=== PATIENT | female | born 1980 | race Hispanic/Latino ===

== ENCOUNTER 2017-01-05 16:41 | Emergency (ER) | payer BC ==
--- NOTE | 2017-01-05 17:44 | Emergency Department Report ---
ED Seizure HPI - General Chief Complaint: Seizure Stated Complaint: SEIZURE Time Seen by Provider: 01/05/17 17:14 Source: patient, family, EMS, RN notes reviewed, old records reviewed Mode of arrival: Stretcher Limitations: No Limitations - History of Present Illness Initial Comments: This is a 36-year-old female, previously unknown to me. Her primary care doctor is Dr. Acacia Orozco. She has a history of seizure disorder, and takes gabapentin, 600 mg 5 times daily. She moved here from [place] in late 2015. She reports that she is unable to tolerate Keppra, valproic acid, Tegretol. She is brought to the hospital by EMS for seizure. Patient was at work, and apparently had a generalized tonic clonic seizure. She fell and hit her right head. Prior to the event, there was no severe headache, neck pain, chest pain, abdominal pain or shortness of breath. Last seizure was 3 weeks ago. Prior seizure to that was 3 weeks before that. No cough, no mucus production, no abdominal pain, but no irritative or obstructive urinary symptoms. sHe denies toxic drug use. MD Complaint: seizure -: Sudden Description of Episode: loss of consciousness -: second(s) Witnessed:: Yes Trauma: Yes Seizure History: known seizure disorder, compliant with medication Place: work Possible Precipitating Event: none Associated Symptoms: denies: chest pain, cough, diaphoresis, fever/chills, loss of appetite, malaise, rash, shortness of breath, syncope, weakness, tongue injury, shoulder dislocation - Related Data Home Medications Medication Instructions Recorded Confirmed Last Taken Gabapentin [Neurontin] 1,200 mg PO TID 01/05/17 01/05/17 01/05/17 Previous Rx's Medication Instructions Recorded Last Taken Type levETIRAcetam [Keppra TAB] 1,000 mg PO BID #60 tab 01/05/17 Unknown Rx Allergies Allergy/AdvReac Type Severity Reaction Status Date / Time clindamycin Allergy Anaphylaxis Verified 09/25/16 17:03 fentanyl Allergy Shortness Verified 09/25/16 17:03 of Breath methocarbamol [From Robaxin] Allergy Itching Verified 09/25/16 17:03 morphine Allergy Anaphylaxis Verified 09/25/16 17:03 oxycodone HCl [From Percocet] Allergy Itching Verified 09/25/16 17:03 Penicillins Allergy Swelling Verified 09/25/16 17:03 Tetanus Vaccines & Toxoid Allergy Swelling Verified 09/23/16 13:06 ED Review of Systems ROS: Stated complaint: SEIZURE Other details as noted in HPI Constitutional: denies: fever Eyes: denies: eye discharge ENT: denies: epistaxis Respiratory: denies: cough Cardiovascular: denies: chest pain Gastrointestinal: denies: abdominal pain Genitourinary: denies: dysuria Musculoskeletal: denies: back pain Skin: as per HPI Neurological: as per HPI, headache Psychiatric: anxiety ED Past Medical Hx - Past Medical History Hx Seizures: Yes - Surgical History Additional Surgical History: tubal ligation, kidney stone, tonsillectomy - Social History Smoking Status: Current Every Day Smoker Substance Use Type: None - Medications Home Medications: Home Medications Medication Instructions Recorded Confirmed Last Taken Type Gabapentin [Neurontin] 1,200 mg PO TID 01/05/17 01/05/17 01/05/17 History levETIRAcetam [Keppra TAB] 1,000 mg PO BID #60 tab 01/05/17 Unknown Rx ED Physical Exam - General Limitations: No Limitations General appearance: alert, in no apparent distress - Head Head exam: Present: atraumatic, normocephalic - Eye Eye exam: Present: normal appearance, PERRL, EOMI. Absent: nystagmus - ENT ENT exam: Present: normal exam, normal orophraynx, mucous membranes moist, TM's normal bilaterally, normal external ear exam - Neck Neck exam: Present: normal inspection, full ROM. Absent: tenderness, meningismus - Respiratory Respiratory exam: Present: normal lung sounds bilaterally. Absent: respiratory distress, wheezes, rales, rhonchi, stridor, chest wall tenderness - Cardiovascular Cardiovascular Exam: Present: regular rate, normal rhythm, normal heart sounds. Absent: bradycardia, tachycardia, irregular rhythm, systolic murmur, diastolic murmur, rubs, gallop - GI/Abdominal GI/Abdominal exam: Present: soft, normal bowel sounds. Absent: distended, tenderness, guarding, rebound, rigid, pulsatile mass - Extremities Exam Extremities exam: Present: normal inspection, full ROM, normal capillary refill. Absent: tenderness, pedal edema, joint swelling, calf tenderness - Back Exam Back exam: Present: normal inspection, full ROM. Absent: tenderness, CVA tenderness (R), CVA tenderness (L), muscle spasm, paraspinal tenderness, vertebral tenderness - Neurological Exam Neurological exam: Present: alert, oriented X3, normal gait, other (Extraocular movements intact. Tongue midline. No facial droop. Facial sensation intact to light touch in the V1, V2, V3 distribution bilaterally. 5 and 5 strength in 4 extremities.. Sensation is intact to light touch in 4 extremities.). Absent : motor sensory deficit - Psychiatric Psychiatric exam: Present: normal affect, normal mood - Skin Skin exam: Present: warm, dry, intact, normal color. Absent: rash ED Course Vital Signs 01/05/17 01/05/17 01/05/17 17:09 19:19 19:37 Temperature 98.3 F Pulse Rate 76 70 Respiratory 18 16 14 Rate Blood Pressure 146/89 Blood Pressure 134/81 [Left] O2 Sat by Pulse 100 99 Oximetry - Reevaluation(s) Reevaluation #1: 01/05/17 18:22 Differential diagnosis: Breakthrough seizure, medication noncompliance, intracranial injury, concussion, urinary tract infection, drug abuse Assessment and plan: 36-year-old female with a known history of seizure disorder , has multiple intolerances to multiple anticonvulsant medications, is currently on gabapentin, and does not have an outpatient neurologist. Had a breakthrough seizure today. Last breakthrough seizure was 3 weeks ago, and prior breakthrough seizure to that was 3 weeks before that. She has an element of head trauma today. May have a mild concussion. Has a GCS of 15, with an NIH score of 0. No indication for C-spine imaging at this time. Patient is clinically sober at this time. The cervical spine is cleared through nexus and greenland[place] c spine rule We will obtain noncontrast CAT scan of the head. Basic laboratory studies are pending. 01/05/17 18:59 Reevaluation #2: 01/05/17 21:06 noncontrast CAT scan of the brain demonstrates multiple chronic- appearing white matter lesions. I have discussed this with the patient. She reports these lesions have been there since she was 23. She reports having extensive workup in [place], including lumbar puncture, and MRI. She reports that she does not take Dilantin or valproic acid because she seizes through them. She reports that she does not take Tegretol because she seizes through that. She can tolerate Keppra, but gets nonspecific dizziness. I have contacted the neurologist human resources consultant for [facility]; Dr. Thomas. I have discussed her case with the neurologist, and the neurologist has reviewed her imaging. She recommends either Vimpat, 200 mg as a loading dose followed by 100 mg twice daily, or Keppra, 1000 mg twice daily, in addition to the patient continuing her gabapentin, which she states is an adjunct of therapy. She does recommended the patient follow-up as an outpatient for an MRI with and without contrast. Patient can follow-up at [facility] in the neurology clinic by calling the phone number [phone], which is the phone number for [facility] casting machine set up operator. Patient can also follow up at the [facility] at [phone]. The patient is willing to try keppra again. She has been observed in the ER for a prolonged period of time without clinical decompensation. She clinically appears well, has a GCS of 15, with an NIH score of 0. she is instructed as to the need for close follow up with outpatient neurology. patient and significant other verbalize understanding Reevaluation #3: 01/05/17 21:25 Correction, patient reports she takes gabapentin, 1200 mg 3 times daily. She also reports that she is able to take Motrin/ibuprofen for pain. ED Medical Decision Making - Lab Data Result diagrams: 01/05/17 18:05 01/05/17 18:05 - Radiology Data Radiology results: report reviewed, image reviewed Noncontrast CAT scan of the brain demonstrates no acute injury. There are multiple scattered patchy moderate sized partially focal areas of low intensity throughout the cerebral hemisphere white matter. These are nonspecific. May indicate a demyelinating disease such as multiple sclerosis. White matter disease of other etiology is not excluded. Chronic small vessel ischemic change or multiple deep white matter infarcts are possible but less likely considering the patient's age. Critical care attestation.: If time is entered above; I have spent that time in minutes in the direct care of this critically ill patient, excluding procedure time. ED Disposition Clinical Impression: Convulsion Qualifiers: Convulsion type: unspecified Qualified Code(s): R56.9 - Unspecified convulsions Disposition: DISCHARGED TO HOME OR SELFCARE Is pt being admited?: No Does the pt Need Aspirin: No Condition: Good Instructions: Recurrent Seizures Adult (ED) Additional Instructions: Do not drive a car or operate motor vehicles for the next 6 months. Follow up with the neurology specialist within the next week. Dr. Berg and Dr. Kelley are local neurology specialist. Alternatively, you may contact the [facility] casting machine set up operator at [phone], and request neurology clinic. Another option that is available to use to call [phone] and ask for the [facility]. Continue your current outpatient gabapentin, and take the Keppra medication as well. It is very important to closely follow up with an outpatient neurology specialist. Not following up in a timely fashion may result in disability, delay in diagnosis, loss of quality of life. Prescriptions: levETIRAcetam [Keppra TAB] 1,000 mg PO BID #60 tab Referrals: PRIMARY CAREMD [Primary Care Provider] - 3-5 Days JOEL BERG MD [Staff Physician] - 3-5 Days ACACIA KELLEY MD [Staff Physician] - 3-5 Days Forms: Work/School Release Form(ED)
[2017-01-05 18:19] LABS: Hematocrit 38.6 % (30.3-42.9); Hemoglobin 12.4 gm/dl (10.1-14.3); Mean Corpuscular HGB Conc 32 % (30-34); Mean Corpuscular Hemoglobin 28 pg (28-32); Mean Corpuscular Volume 86 fl (79-97); Platelet Count 290 K/mm3 (140-440); Red Cell Distribution Width 15.3 % (13.2-15.2)
[2017-01-05 18:20] LABS: Urine Drugs of Abuse Note Disclamer
[2017-01-05 18:41] LABS: BUN/Creatinine Ratio 12.85; Blood Urea Nitrogen 9 mg/dL (7-17); Calcium 8.7 mg/dL (8.4-10.2); Carbon Dioxide 24 mmol/L (22-30); Chloride 102.8 mmol/L (98-107); Creatine Kinase 95 units/L (30-135); Glucose 78 mg/dL (65-100); Potassium 3.9 mmol/L (3.6-5.0); Sodium 141 mmol/L (137-145)
[2017-01-05 19:01] LABS: Bacteria,Urine 1+ /HPF (Negative); Bilirubin,Urine NEG (Negative); Blood,Urine NEG (Negative); Ketones,Urine NEG (Negative); Leukocyte Esterase,Urine NEG (Negative); Mucus,Urine FEW /HPF; Nitrite,Urine NEG (Negative); Protein,Urine <15 mg/dL mg/dL (Negative); Urobilinogen,Urine < 2.0 mg/dL (<2.0); WBC,Urine < 1.0 /HPF (0.0-6.0)
[2017-01-05 19:25] LABS: Anion Gap 18 mmol/L
[2017-01-05 19:38] VITALS: BP 134/81
--- NOTE | 2017-01-05 20:39 | Cat Scan Report ---
FINAL REPORT PROCEDURE: CT HEAD/BRAIN WO CON TECHNIQUE: Computerized tomography of the head was performed without contrast material. HISTORY: seizure head trauma concussion COMPARISON: No prior studies are available for comparison. FINDINGS: Skull and scalp: Normal. Paranasal sinuses: Normal. Ventricles and subarachnoid spaces: Normal. Cerebrum: There is no CT evidence of hemorrhage or edema or shift or acute infarct. However there are multiple patchy moderate sized scattered areas of partially focal low-density throughout the cerebral hemisphere white matter bilaterally.. Cerebellum and brainstem: No evidence of hemorrhage, acute infarction or mass. Vasculature: Normal. Comments: None. IMPRESSION: 1. There is no CT evidence of hemorrhage or acute infarct. 2. However there are multiple scattered patchy moderate-sized partially focal areas of low density throughout the cerebral hemisphere white matter. These are nonspecific. Considering the patient's age this could indicate demyelinating disease such as multiple sclerosis. White matter disease of other etiology is not excluded. Chronic small vessel ischemic change or multiple deep white matter infarcts are possible but less likely considering the patient's age. Further evaluation with brain MRI with and without contrast is recommended to better evaluate characterize these findings.
[2017-01-05] MEDS ORDERED: KEPPRA PO ONE (21:06)
[2017-01-05] MEDS ORDERED: MOTRIN PO ONE ×2 (21:39→21:55)
== END 2017-01-05 21:58 | disposition home or self-care (01) ==
LOC: ED 16:41
DX: G40.909 Epilepsy, unspecified, not intractable, without status epilepticus (principal); F17.200 Nicotine dependence, unspecified, uncomplicated
CPT/HCPCS: 36415; 70450; 80048; 80307; 81001; 82550; 84703; 85027